=== PATIENT | male | born 1935 | race Caucasian/White ===

== ENCOUNTER → 2016-10-28 | Outpatient (CLI) | payer MEDICARE ==
[~2016-10-28] MED LIST: REGADENOSON 0.4 MG/5 ML SYRINGE ONE
== END | disposition home or self-care (01) ==
LOC: CFH 06:49
PROVIDERS: ATTEND Internal Medicine Cardiovascular Disease
DX: I08.3 Combined rheumatic disorders of mitral, aortic and tricuspid valves (principal); I37.1 Nonrheumatic pulmonary valve insufficiency; I44.7 Left bundle-branch block, unspecified; I48.2 Chronic atrial fibrillation; I42.9 Cardiomyopathy, unspecified; I10 Essential (primary) hypertension; Z86.73 Personal history of transient ischemic attack (TIA), and cerebral infarction without residual deficits
CPT/HCPCS: 78452; 93017; A9502; C8929; J2785

== ENCOUNTER 2016-10-29 12:30 | Inpatient (IN) | payer MEDICARE ==
[~2016-10-29] VITALS: Ht 172.7 cm; Wt 84.3 kg
[2016-10-29 13:15] VITALS: BP 144/85
[2016-10-29] MEDS ORDERED: POTASSIUM CHLORIDE 20 MEQ TAB.ER.PRT PO PRN (13:30)
[2016-10-29] MEDS ORDERED: PLEASE ENTER ALLERGIES MC SCH ×2 (13:30)
[2016-10-29] MEDS ORDERED: PLEASE ENTER HEIGHT AND WEIGHT MC SCH (13:30)
[2016-10-29] MEDS ORDERED: FUROSEMIDE 20 MG TABLET PO PRN (13:30)
[2016-10-29] MEDS ORDERED: AMIODARONE 150 MG in DEXTROSE 5% 100 ML IV ONE (13:30)
[2016-10-29] MEDS: AMIODARONE 900 MG in DEXTROSE 5% 482 ML IV PRN (14:00)
[2016-10-29 14:58] LABS: BLOOD UREA NITROGEN 34 mg/dL (7-18)
[2016-10-29 15:03] LABS: IS PT STATUS REG ER OR PRE ER? NO
[2016-10-29] MEDS ORDERED: RIVAROXABAN 20 MG TABLET PO SCH (16:30)
[2016-10-29 18:50] VITALS: BP 147/90
[2016-10-29 18:56] LABS: IS PT STATUS REG ER OR PRE ER? NO
[2016-10-29] MEDS: OMEPRAZOLE 20 MG CAPSULE.DR PO SCH (20:21)
[2016-10-29] MEDS: SPIRONOLACTONE 50 MG TABLET PO SCH (20:21)
[2016-10-29] MEDS: SIMVASTATIN 20 MG TABLET PO SCH (20:21)
[2016-10-29] MEDS ORDERED: TRAZODONE 50MG TABLET PO PRN (21:00)
[2016-10-29] MEDS: GUAIFENESIN 100 MG/5 ML, 5ML UDC PO PRN (21:13)
[2016-10-29] MEDS: POLYETHYLENE GLYCOL 17 GM PACKET PO SCH (21:13)
[2016-10-30 01:22] LABS: IS PT STATUS REG ER OR PRE ER? NO
[2016-10-30 04:10] VITALS: BP 150/89
[2016-10-30] MEDS: METOPROLOL SUCCINATE 50 MG TAB.ER.24H PO SCH (04:15)
[2016-10-30] MEDS ORDERED: AMIODARONE 150 MG in DEXTROSE 5% 100 ML IV ONE (08:00)
[2016-10-30] MEDS ORDERED: TRAZODONE 50MG TABLET PO PRN (08:00)
[2016-10-30] MEDS: SPIRONOLACTONE 50 MG TABLET PO SCH ×2 (08:30→20:20)
[2016-10-30] MEDS: ALLOPURINOL 300 MG TABLET PO SCH (08:30)
[2016-10-30] MEDS ORDERED: TRAZODONE 100MG TABLET PO PRN (08:39)
[2016-10-30] MEDS ORDERED: FUROSEMIDE 20 MG TABLET PO SCH (09:00)
[2016-10-30 09:07] VITALS: BP 135/70
[2016-10-30] MEDS: FILTER 0.22 MICRON IV PRN ×2 (09:14→16:12)
[2016-10-30] MEDS: OMEPRAZOLE 20 MG CAPSULE.DR PO SCH ×2 (11:43→20:20)
[2016-10-30] MEDS: POTASSIUM CHLORIDE 20 MEQ TAB.ER.PRT PO SCH (11:43)
[2016-10-30] MEDS: GUAIFENESIN 100 MG/5 ML, 5ML UDC PO PRN ×2 (11:43→20:46)
[2016-10-30] MEDS: FUROSEMIDE 40 MG TABLET PO SCH (11:43)
[2016-10-30 15:21] VITALS: BP 147/81
[2016-10-30] MEDS: AMIODARONE 900 MG in DEXTROSE 5% 482 ML IV PRN (16:11)
[2016-10-30] MEDS: RIVAROXABAN 15 MG TABLET PO SCH (18:16)
[2016-10-30] MEDS ORDERED: PROMETHAZINE 25 MG/ML, 1ML IM ONE (19:00)
[2016-10-30 19:31] VITALS: BP 154/89
[2016-10-30 19:42] VITALS: BP 117/65
[2016-10-30] MEDS: SIMVASTATIN 20 MG TABLET PO SCH (20:20)
[2016-10-30] MEDS: POLYETHYLENE GLYCOL 17 GM PACKET PO SCH (20:20)
[2016-10-31 01:32] VITALS: BP 138/76
[2016-10-31 05:36] LABS: BLOOD UREA NITROGEN 31 mg/dL (7-18)
[2016-10-31] MEDS: METOPROLOL SUCCINATE 50 MG TAB.ER.24H PO SCH (06:32)
[2016-10-31 06:45] VITALS: BP 155/89
[2016-10-31] MEDS ORDERED: MIDAZOLAM 1 MG/ML, 5ML ONE (08:22)
[2016-10-31] MEDS ORDERED: MIDAZOLAM 1 MG/ML, 2ML IV ONE (08:30)
[2016-10-31] MEDS ORDERED: FENTANYL PF 100 MCG/2ML IV ONE (08:30)
[2016-10-31] MEDS ORDERED: FENTANYL PF 100 MCG/2ML IVPush ONE (09:30)
[2016-10-31] MEDS ORDERED: MIDAZOLAM 1 MG/ML, 5ML IVPush ONE (09:30)
[2016-10-31] MEDS: FUROSEMIDE 40 MG TABLET PO SCH (11:02)
[2016-10-31] MEDS: OMEPRAZOLE 20 MG CAPSULE.DR PO SCH ×2 (11:02→21:38)
[2016-10-31] MEDS: POTASSIUM CHLORIDE 20 MEQ TAB.ER.PRT PO SCH (11:02)
[2016-10-31] MEDS: ALLOPURINOL 300 MG TABLET PO SCH (11:02)
[2016-10-31] MEDS: SPIRONOLACTONE 50 MG TABLET PO SCH ×2 (11:02→21:38)
[2016-10-31] MEDS: AMIODARONE 200 MG TABLET PO SCH ×2 (11:47→21:39)
[2016-10-31 13:17] VITALS: BP 124/89
[2016-10-31] MEDS: GUAIFENESIN 100 MG/5 ML, 5ML UDC PO PRN (13:18)
[2016-10-31] MEDS: RIVAROXABAN 15 MG TABLET PO SCH (17:31)
[2016-10-31 19:54] VITALS: BP 126/71
[2016-10-31] MEDS: POLYETHYLENE GLYCOL 17 GM PACKET PO SCH (21:38)
[2016-10-31] MEDS: SIMVASTATIN 20 MG TABLET PO SCH (21:38)
[2016-11-01 01:30] VITALS: BP 116/77
[2016-11-01] MEDS: GUAIFENESIN 100 MG/5 ML, 5ML UDC PO PRN ×4 (04:25→21:30)
[2016-11-01] MEDS: METOPROLOL SUCCINATE 50 MG TAB.ER.24H PO SCH (06:23)
[2016-11-01 07:36] VITALS: BP 127/79
[2016-11-01] MEDS: SPIRONOLACTONE 50 MG TABLET PO SCH ×2 (08:31→20:41)
[2016-11-01] MEDS: POTASSIUM CHLORIDE 20 MEQ TAB.ER.PRT PO SCH (08:31)
[2016-11-01] MEDS: AMIODARONE 200 MG TABLET PO SCH ×2 (08:31→20:40)
[2016-11-01] MEDS: ALLOPURINOL 300 MG TABLET PO SCH (08:32)
[2016-11-01] MEDS: OMEPRAZOLE 20 MG CAPSULE.DR PO SCH ×2 (08:32→20:40)
[2016-11-01] MEDS: FUROSEMIDE 40 MG TABLET PO SCH (08:32)
[2016-11-01 15:45] VITALS: BP 121/79
[2016-11-01] MEDS: RIVAROXABAN 15 MG TABLET PO SCH (18:40)
[2016-11-01 20:15] VITALS: BP 132/87
[2016-11-01] MEDS: POLYETHYLENE GLYCOL 17 GM PACKET PO SCH (20:40)
[2016-11-01] MEDS: SIMVASTATIN 20 MG TABLET PO SCH (20:41)
[2016-11-02 03:10] VITALS: BP 130/83
[2016-11-02] MEDS: METOPROLOL SUCCINATE 50 MG TAB.ER.24H PO SCH (06:17)
[2016-11-02] MEDS: POTASSIUM CHLORIDE 20 MEQ TAB.ER.PRT PO SCH (10:05)
[2016-11-02] MEDS: SPIRONOLACTONE 50 MG TABLET PO SCH (10:05)
[2016-11-02] MEDS: AMIODARONE 200 MG TABLET PO SCH (10:05)
[2016-11-02] MEDS: ALLOPURINOL 300 MG TABLET PO SCH (10:06)
[2016-11-02] MEDS: OMEPRAZOLE 20 MG CAPSULE.DR PO SCH (10:06)
[2016-11-02] MEDS: FUROSEMIDE 40 MG TABLET PO SCH (10:06)
[2016-11-02 10:08] VITALS: BP 130/89
[2016-11-02] MEDS: GUAIFENESIN 100 MG/5 ML, 5ML UDC PO PRN (11:00)
[2016-11-02] MEDS ORDERED: METO-93 PO (11:55)
[2016-11-02] MEDS ORDERED: SPIR50TA PO (11:55)
[2016-11-02] MEDS ORDERED: ALLO300T PO (11:55)
[2016-11-02] MEDS ORDERED: POTA20TA6 PO (11:55)
[2016-11-02] MEDS ORDERED: AMIO200T42 PO (11:55)
[2016-11-02] MEDS ORDERED: SIMV20TA3 PO (11:55)
[2016-11-02] MEDS ORDERED: RIVA15TA PO (11:55)
[2016-11-02] MEDS ORDERED: FURO40TA6 PO (11:55)
== END 2016-11-02 14:20 | disposition home or self-care (01) | DRG 308 ==
LOC: 5SO 12:50 → DCLOUNGE 11-02 13:58
PROVIDERS: ADMIT Internal Medicine Cardiovascular Disease; ATTEND Internal Medicine Cardiovascular Disease
PROC: 5A2204Z Restoration of Cardiac Rhythm, Single (ICD-10-PCS; principal; 2016-10-31)
DX: I49.5 Sick sinus syndrome (principal); I50.43 Acute on chronic combined systolic (congestive) and diastolic (congestive) heart failure; D68.69 Other thrombophilia; I42.9 Cardiomyopathy, unspecified; I48.2 Chronic atrial fibrillation; I44.7 Left bundle-branch block, unspecified; E78.5 Hyperlipidemia, unspecified; G47.00 Insomnia, unspecified; I11.0 Hypertensive heart disease with heart failure; I65.22 Occlusion and stenosis of left carotid artery; I73.9 Peripheral vascular disease, unspecified; K21.9 Gastro-esophageal reflux disease without esophagitis; M10.9 Gout, unspecified; N28.9 Disorder of kidney and ureter, unspecified; Z86.73 Personal history of transient ischemic attack (TIA), and cerebral infarction without residual deficits; Z87.891 Personal history of nicotine dependence; Z88.1 Allergy status to other antibiotic agents; Z88.5 Allergy status to narcotic agent; Z88.8 Allergy status to other drugs, medicaments and biological substances; I25.10 Atherosclerotic heart disease of native coronary artery without angina pectoris; M10.00 Idiopathic gout, unspecified site
CPT/HCPCS: 36415; 71020; 78452; 80048; 80061; 84439; 84443; 84484; 85014; 85018; 93005; 93017; C8929; J2250; J2785; J3010; A9502; J0282; J7060

== ENCOUNTER → 2016-11-30 | Outpatient (CLI) | payer MEDICARE ==
[~2016-11-30] MED LIST changes: +ALLO300T PO; +AMIO200T42 PO; +FURO40TA6 PO; +METO-93 PO; +POTA20TA6 PO; -REGADENOSON 0.4 MG/5 ML SYRINGE ONE; +RIVA15TA PO; +SIMV20TA3 PO; +SPIR50TA PO
== END | disposition home or self-care (01) ==
LOC: RAD 10:42
PROVIDERS: ATTEND Registered Nurse Registered Nurse First Assistant
DX: M41.86 Other forms of scoliosis, lumbar region (principal); M51.37 Other intervertebral disc degeneration, lumbosacral region; Z98.1 Arthrodesis status; Z98.890 Other specified postprocedural states
CPT/HCPCS: 72082

== ENCOUNTER → 2017-01-14 | Outpatient (CLI) | payer MEDICARE | END | disposition home or self-care (01) | LOC: CFH 08:44 → EDSTATUS 09:00 | PROVIDERS: ATTEND Physician Assistant Medical | DX: I08.3 Combined rheumatic disorders of mitral, aortic and tricuspid valves (principal); I42.9 Cardiomyopathy, unspecified; I10 Essential (primary) hypertension; E78.5 Hyperlipidemia, unspecified; Z79.01 Long term (current) use of anticoagulants; Z86.73 Personal history of transient ischemic attack (TIA), and cerebral infarction without residual deficits | CPT/HCPCS: 93306 ==

== ENCOUNTER → 2017-04-28 | Outpatient (CLI) | payer MEDICARE | END | disposition home or self-care (01) | LOC: CFH 14:49 | PROVIDERS: ATTEND Physician Assistant | DX: M93.872 Other specified osteochondropathies, left ankle and foot (principal); M62.572 Muscle wasting and atrophy, not elsewhere classified, left ankle and foot; E78.2 Mixed hyperlipidemia; K21.9 Gastro-esophageal reflux disease without esophagitis; E03.9 Hypothyroidism, unspecified; I11.0 Hypertensive heart disease with heart failure; I50.40 Unspecified combined systolic (congestive) and diastolic (congestive) heart failure; N40.0 Benign prostatic hyperplasia without lower urinary tract symptoms; I48.2 Chronic atrial fibrillation; I69.30 Unspecified sequelae of cerebral infarction; I63.9 Cerebral infarction, unspecified ==

== ENCOUNTER → 2017-07-13 | Outpatient (CLI) | payer MEDICARE | LOC: CFH 15:42 | PROVIDERS: ATTEND Physician Assistant | DX: Z11.1 Encounter for screening for respiratory tuberculosis (principal); R05 Cough; E78.2 Mixed hyperlipidemia; I10 Essential (primary) hypertension; K21.9 Gastro-esophageal reflux disease without esophagitis; I50.40 Unspecified combined systolic (congestive) and diastolic (congestive) heart failure; R76.9 Abnormal immunological finding in serum, unspecified; N40.0 Benign prostatic hyperplasia without lower urinary tract symptoms; R53.83 Other fatigue; I48.2 Chronic atrial fibrillation; G47.30 Sleep apnea, unspecified; E29.1 Testicular hypofunction; R01.1 Cardiac murmur, unspecified; I69.30 Unspecified sequelae of cerebral infarction; R79.9 Abnormal finding of blood chemistry, unspecified; D72.829 Elevated white blood cell count, unspecified; R26.81 Unsteadiness on feet; I63.9 Cerebral infarction, unspecified; R93.8 Abnormal findings on diagnostic imaging of other specified body structures; G47.09 Other insomnia; R60.9 Edema, unspecified; E03.9 Hypothyroidism, unspecified | CPT/HCPCS: 71046 ==

== ENCOUNTER → 2017-09-09 | Outpatient (CLI) | payer MEDICARE | END | disposition home or self-care (01) | LOC: CVU 13:26 | PROVIDERS: ATTEND Physician Assistant Medical | DX: I65.23 Occlusion and stenosis of bilateral carotid arteries (principal); I10 Essential (primary) hypertension | CPT/HCPCS: 93880 ==